=== PATIENT | female | born 1965 | race Caucasian/White ===

== ENCOUNTER 2017-04-27 05:27 | Inpatient (IN) | payer OTHER ==
[2017-04-08 08:41] LABS: HEMATOCRIT 43.2 % (37.0-47.0); HEMOGLOBIN 14.9 gm/dL (12.0-15.0); MCH 31.3 pg (26.0-34.0); MCHC 34.5 g/dL (28.0-37.0); MCV 90.7 fL (80.0-100.0); RBC 4.77 mil/uL (4.20-5.00); RDW 12.6 % (10.5-14.5); WBC 8.2 thou/uL (4.0-11.0)
[2017-04-08 08:42] LABS: URINE BILIRUBIN NEGATIVE (Negative); URINE BLOOD NEGATIVE (Negative); URINE COLOR YELLOW; URINE GLUCOSE-RANDOM* NEGATIVE (Negative); URINE KETONES NEGATIVE (Negative); URINE LEUKOCYTES-REFLEX NEGATIVE (Negative); URINE PROTEIN (DIPSTICK) NEGATIVE (Negative); URINE SPECIFIC GRAVITY 1.025 (1.003-1.035); URINE UROBILINOGEN 0.2 E.U./dl (0.2-1.0)
[2017-04-08 08:56] LABS: ALBUMIN 3.8 g/dL (3.4-5.0); CALCIUM 9.3 mg/dL (8.5-10.1); CREATININE 0.6 mg/dL (0.6-1.0); POTASSIUM 4.3 mmol/L (3.5-5.1); TOTAL BILIRUBIN 0.4 mg/dL (<0.1-1.0); TOTAL PROTEIN 7.2 g/dL (6.4-8.2)
[2017-04-08 08:57] LABS: APTT 26.1 Seconds (24.5-32.8)
[~2017-04-27] VITALS: Ht 162.6 cm; Wt 109.5 kg
[2017-04-27] VITALS (8 sets, daily range): BP systolic 89–132; BP diastolic 47–82
--- NOTE | ~2017-04-27 | EKG ---
[place] [address] [facility] [place] [address] ELECTROCARDIOGRAM REPORT Name: CAROLINE DIAZ Room #: [facility]#: [id number] Admission: Attend Phys: John Alvarez MD Discharge: Date of : 61 Report #: [id number] THIS REPORT FOR: //name// [facility] Test Date: 2017-04-08 Test Time: 08:54:14 Pat Name: CAROLINE DIAZ Department: Room: Gender: F Respiratory Care Specialist: shonda : 1965 Requested By: John Alvarez Order Number: [id number] MD: Cristobal Parmar Measurements Intervals Bureau Rate: 78 P: -16 TX: 147 QRS: 33 QRSD: 83 T: 55 QT: 385 QTc: 439 Interpretive Statements Sinus rhythm Low voltage, precordial leads No previous ECG available for comparison Electronically Signed On 04-09-2017 8:17:37 CDT by Cristobal Parmar [email or web address] <ELECTRONICALLY SIGNED> By: Cristobal Parmar MD, [facility] 04/09/17 0817 [id number] [id number] Cristobal Parmar MD, [facility] /EPI
[2017-04-28 03:12] VITALS: BP 114/54
[2017-04-28 04:32] LABS: HEMATOCRIT 32.7 % (37.0-47.0); HEMOGLOBIN 11.1 gm/dL (12.0-15.0); MCH 30.8 pg (26.0-34.0); MCHC 34.1 g/dL (28.0-37.0); MCV 90.5 fL (80.0-100.0); RBC 3.61 mil/uL (4.20-5.00); RDW 12.9 % (10.5-14.5); WBC 12.2 thou/uL (4.0-11.0)
[2017-04-28 07:05] VITALS: BP 91/50
[2017-04-28 16:49] VITALS: BP 113/57
[2017-04-28 20:00] VITALS: BP 106/50; BP 113/43
[2017-04-29 04:00] VITALS: BP 95/54
[2017-04-29 05:01] LABS: HEMATOCRIT 29.4 % (37.0-47.0); HEMOGLOBIN 10.2 gm/dL (12.0-15.0); MCH 31.4 pg (26.0-34.0); MCHC 34.5 g/dL (28.0-37.0); MCV 90.9 fL (80.0-100.0); RBC 3.24 mil/uL (4.20-5.00); WBC 11.2 thou/uL (4.0-11.0)
[2017-04-29 07:20] VITALS: BP 106/65
[2017-04-29 11:17] VITALS: BP 106/65
[2017-04-29 11:24] VITALS: BP 106/65
[2017-04-29 15:00] VITALS: BP 109/62
[2017-04-29 20:58] VITALS: BP 114/60
[2017-04-30 03:25] VITALS: BP 113/58
[2017-04-30 05:28] LABS: HEMATOCRIT 28.2 % (37.0-47.0); HEMOGLOBIN 9.9 gm/dL (12.0-15.0); MCH 31.9 pg (26.0-34.0); MCV 91.2 fL (80.0-100.0); RBC 3.1 mil/uL (4.20-5.00); RDW 13.2 % (10.5-14.5); WBC 9.6 thou/uL (4.0-11.0)
[2017-04-30 10:43] VITALS: BP 106/65
[2017-04-30 13:30] VITALS: BP 106/65
[2017-04-30 15:07] VITALS: BP 106/65
[2017-04-30 15:35] VITALS: BP 106/65
== END 2017-04-30 16:46 | disposition home health service (06) | DRG 470 ==
LOC: TBA 05:27 → 5S 05:27
PROVIDERS: Orthopaedic Surgery
PROC: 0SRB03Z Replacement of Left Hip Joint with Ceramic Synthetic Substitute, Open Approach (ICD-10-PCS; principal; 2017-04-27)
DX: M16.12 Unilateral primary osteoarthritis, left hip (principal); Z88.8 Allergy status to other drugs, medicaments and biological substances; Z88.2 Allergy status to sulfonamides
CPT/HCPCS: 10785; 50010; 50101; 50382; 50414; 51412; 51771; 53000; 55388; 56521; 56525; 56527; 62110; 62900; 70005

== ENCOUNTER 2021-01-06 12:38 | Emergency (ER) | payer OTHER ==
[~2021-01-06] VITALS: Ht 165.1 cm; Wt 113.4 kg
[2021-01-06 12:48] VITALS: BP 153/84
[2021-01-06] MEDS ORDERED: ULTRAM 50MG TAB50 MG PO (13:23)
== END 2021-01-06 13:45 | disposition home or self-care (01) ==
LOC: ER 12:38
DX: S49.92XA Unspecified injury of left shoulder and upper arm, initial encounter (principal); Z90.49 Acquired absence of other specified parts of digestive tract; Z90.89 Acquired absence of other organs; Z88.2 Allergy status to sulfonamides; Z88.8 Allergy status to other drugs, medicaments and biological substances; W18.39XA Other fall on same level, initial encounter; Y93.89 Activity, other specified; Y92.89 Other specified places as the place of occurrence of the external cause; Y99.8 Other external cause status

== ENCOUNTER → 2021-02-20 | Outpatient (CLI) | payer OTHER ==
[~2021-02-20] MED LIST: ULTRAM 50MG TAB50 MG PO
== END ==
LOC: ULTRA 08:42
PROVIDERS: ATTEND Family Medicine
DX: M79.604 Pain in right leg (principal); R60.0 Localized edema

== ENCOUNTER → 2021-10-24 | Outpatient (CLI) | payer OTHER ==
[2021-10-24 10:58] LABS: HEMATOCRIT 51.1 % (37.0-47.0); HEMOGLOBIN 16.8 gm/dL (12.0-15.0); MCH 31.1 pg (26.0-34.0); MCHC 32.9 g/dL (28.0-37.0); MCV 94.3 fL (80.0-100.0); RBC 5.42 mil/uL (4.20-5.00); URINE BILIRUBIN NEGATIVE (Negative); URINE BLOOD NEGATIVE (Negative); URINE CLARITY CLEAR; URINE COLOR YELLOW; URINE GLUCOSE-RANDOM* NEGATIVE (Negative); URINE KETONES NEGATIVE (Negative); URINE LEUKOCYTES-REFLEX NEGATIVE (Negative); URINE NITRITE-REFLEX NEGATIVE (Negative); URINE PROTEIN (DIPSTICK) NEGATIVE (Negative); URINE SPECIFIC GRAVITY >= 1.030 (1.005-1.035); URINE UROBILINOGEN 0.2 E.U./dl (0.2-1.0); WBC 6.9 thou/uL (4.0-11.0)
[2021-10-24 11:07] LABS: ALBUMIN 3.9 g/dL (3.4-5.0); CALCIUM 9.7 mg/dL (8.5-10.1); CREATININE 0.7 mg/dL (0.6-1.0)
[2021-10-24 11:10] LABS: INR 0.92; PROTIME 10.1 Seconds (10.5-12.1)
== END ==
LOC: PAC 07:54
PROVIDERS: ATTEND Orthopaedic Surgery
DX: Z01.812 Encounter for preprocedural laboratory examination (principal); M17.11 Unilateral primary osteoarthritis, right knee

== ENCOUNTER → 2021-11-08 | Outpatient (CLI) | payer OTHER | LOC: LAB 10:42 | PROVIDERS: ATTEND Student in an Organized Health Care Education/Training Program | DX: Z01.812 Encounter for preprocedural laboratory examination (principal); Z20.822 Contact with and (suspected) exposure to COVID-19 ==

== ENCOUNTER 2021-11-11 06:07 | Observation (INO) | payer OTHER ==
[~2021-11-11] VITALS: Ht 165.1 cm; Wt 122.5 kg
[2021-11-11 07:32] VITALS: BP 139/72
[2021-11-11 19:50] VITALS: BP 118/66
[2021-11-12 06:30] LABS: ABSOLUTE NEUTROPHILS 6.8 thou/uL (1.4-8.2); BASOPHILS 0.2 % (0.0-2.0); EOSINOPHILS 0.1 % (0.0-3.0); HEMATOCRIT 33.6 % (37.0-47.0); HEMOGLOBIN 11.4 gm/dL (12.0-15.0); LYMPHOCYTES 26.8 % (24.0-44.0); MCH 31.4 pg (26.0-34.0); MCV 92.2 fL (80.0-100.0); MONOCYTES 7.9 % (1.0-8.0); PLATELET COUNT 277 thou/uL (150-400); RBC 3.64 mil/uL (4.20-5.00); RDW 12.9 % (10.5-14.5); WBC 10.5 thou/uL (4.0-11.0)
[2021-11-12 06:37] LABS: CALCIUM 8.3 mg/dL (8.5-10.1); CREATININE 0.6 mg/dL (0.6-1.0); MAGNESIUM 2.2 mg/dL (1.8-2.4); POTASSIUM 3.9 mmol/L (3.5-5.1)
--- NOTE | 2021-11-12 07:26 | O ---
[facility] [place] [address] OPERATIVE REPORT Name: CAROLINE DIAZ Room #: 439-P [facility] Marci#: [id number] Admission: 11/11/21 Attend Phys: John Alvarez MD Discharge: Date of : 61 Report #: [id number] THIS REPORT FOR: cc: Noel Reese James A. DO Clymer, David J. MD ~ DATE OF SERVICE: 11/11/2021 PREOPERATIVE DIAGNOSIS: End-stage degenerative arthritis, right knee. POSTOPERATIVE DIAGNOSIS: End-stage degenerative arthritis, right knee. PROCEDURE: Right total knee arthroplasty. SURGEON: John Alvarez MD INDICATIONS: This heavy 56-year-old female has moderate degenerative arthritis in multiple areas. She underwent left total hip replacement in the past with good result. She now has progressive right knee pain with moderate varus malalignment and limited range of motion. She is not seeing much improvement with conservative measures and has decided to go ahead with right total knee arthroplasty. The patient and her both understand she is certainly at some risk for postoperative problems or difficulty with rehabilitation given her large size and deconditioned state. DESCRIPTION OF PROCEDURE: The patient was taken to the operating room where she was placed under general anesthesia. Right femoral nerve block was also applied. The right knee and leg were meticulously prepped and draped and a thigh tourniquet applied and inflated to 350 mmHg. An anterior longitudinal skin incision was made and carried through the medial retinaculum. The patella was reflected laterally. The Rangel and Nephew knee system was utilized. Intramedullary guides were used on both the femur and the tibia. The femur was cut in 5 degrees of valgus and the tibia cut perpendicular to the long axis of the bone. Sufficient bone was resected to correct the mild flexion contracture and improve the mild preoperative varus malalignment. The femur seemed best suited for a size 4 component and the tibia best suited for a size 3 component. A trial reduction was performed and a 10 mm polyethylene insert fit nicely. This resulted in satisfactory alignment and range of motion and stability. The patella surface was resected and a 32 mm patellar button fit nicely with appropriate anchor holes. The patella seemed to track well and seemed to be stable. The trial components were removed. The surfaces were thoroughly irrigated and dried. The intramedullary canal was blocked with a bone block on both the femoral and tibial sides. The permanent components were brought on the field. Methyl methacrylate cement was mixed and injected into the porous surface of the [address] [address] OPERATIVE REPORT Name: CAROLINE DIAZ [id number] Admission: 11/11/21 Attend Phys: John Alvarez MD Discharge: Date of : 61 Report #: [id number] proximal tibia. The Rangel and Nephew size 3 Melanie II right nonporous tibial baseplate was selected. This was impacted into the tibia in good position. It seated nicely and appeared to be secure. Excess cement was removed around its margin. A 10 mm thick Legion cruciate retaining high flexion polyethylene liner was snapped into place. It seated nicely and appeared to be secure. The size 4 right cruciate retaining Legion porous femoral component was then impacted on the distal femur. A small amount of cement was used at the distal anchor holes where the bone is mildly osteoporotic. The other area seemed to be better and no other cement was required. This component also seated nicely and appeared to be secure. A 32 mm patellar button using the Rangel and Nephew Melanie II patellar component was selected. This was placed in the patella using appropriate anchor holes and cement. A patellar clamp was used while the cement hardened. Once the cement was fully cured, alignment, range of motion and stability were once again assessed and felt to be satisfactory. The knee demonstrated full knee extension with significant improvement in the preoperative varus malalignment. The knee demonstrated good flexion beyond 140 degrees with satisfactory stability. The patella seems to track nicely. At this point, the knee was copiously irrigated. The tourniquet was deflated after a total tourniquet time of 56 minutes. A single Hemovac was left in the wound exiting through a separate lateral stab incision. The fascia was closed with multiple #1 Vicryl sutures, the subcutaneous tissues were closed with 0 Monocryl. The skin was closed with skin shakila. A sterile dressing was applied. The patient was awakened and returned to recovery room in good condition. <ELECTRONICALLY SIGNED> By: John Alvarez MD 11/12/21 0726 0821 0848 John Alvarez MD /manpreet
[2021-11-12 09:03] VITALS: BP 122/79
[2021-11-12 16:18] VITALS: BP 120/61
[2021-11-12 20:25] VITALS: BP 118/55
[2021-11-13 03:11] LABS: HEMATOCRIT 31.9 % (37.0-47.0); HEMOGLOBIN 10.8 gm/dL (12.0-15.0); MCH 31.5 pg (26.0-34.0); MCV 92.8 fL (80.0-100.0); RBC 3.43 mil/uL (4.20-5.00); WBC 11.2 thou/uL (4.0-11.0)
[2021-11-13 07:17] VITALS: BP 144/70
[2021-11-13 10:18] VITALS: BP 144/70
--- NOTE | 2021-11-14 07:09 | D ---
[facility] [place] [address] DISCHARGE SUMMARY Name: CAROLINE DIAZ Room #: 439-P [facility] Daly Covarrubias#: [id number] Admission: 11/11/21 Attend Phys: John Alvarez MD Discharge: 11/13/21 Date of : 61 Report #: [id number] THIS REPORT FOR: cc: Noel Reese James A. DO Clymer, David J. MD ~ DATE OF SERVICE: 11/13/2021 FINAL DIAGNOSIS: End-stage degenerative arthritis, right knee. OPERATIVE PROCEDURE: Right total knee arthroplasty. HISTORY: This heavy 56-year-old female complains of progressive right knee pain. She has had similar joint problems in other areas and has had a previous left total hip. The right knee has become much more symptomatic and limiting her ability to remain functional and active and independent. She has decided to go ahead with right total knee arthroplasty. HOSPITAL COURSE: The patient was taken to the operating room on 11/11/2021 and underwent right total knee arthroplasty, which she tolerated well. Postoperatively, her course has been largely unremarkable. Her Hemovac drain was removed after only 150 mL. Her hemoglobin has remained stable. She is advanced to a regular diet. She has had problems with physical therapy given her large size and deconditioned state. However, she has managed to get up with a walker and walk in the room and in the adame and take a few steps. She is using an ice machine and oral medications for pain control. She has been started on a blood thinner. She seems to be making adequate progress, although she is limited by her size and deconditioned state. She seems to be safe and ready for hospital discharge today on 11/13/2021. Her discharge medications include hydrocodone 10 mg every 4-6 hours as needed for pain, Xarelto 10 mg daily and Tylenol p.r.n. for mild pain. She will continue regular diet at home. She will have visiting physical therapy and occupational therapy and plans on delivery of a hospital bed, which may be helpful with her recovery at home. I have asked her to call me if there are any problems or questions. I will plan to see her back in my office in one week for a followup and in two weeks for suture removal. <ELECTRONICALLY SIGNED> By: John Alvarez MD 11/14/21 0709 [id number] John Alvarez MD /nt
== END 2021-11-13 16:30 | disposition home or self-care (01) ==
LOC: OR → 4S 14:47 → OR 14:48 → 4S 14:48
PROVIDERS: Nurse Practitioner; ADMIT Orthopaedic Surgery; ATTEND Orthopaedic Surgery
DX: M17.11 Unilateral primary osteoarthritis, right knee (principal); Z88.2 Allergy status to sulfonamides; Z91.048 Other nonmedicinal substance allergy status
CPT/HCPCS: 10102; 50010; 50101; 50415; 50954; 51130; 51225; 51412; 56525; 57095; 57103; 57104; 57181; 58449; 59024; 62110; 62900; 64039; 70005